=== PATIENT | female | born 1985 | race Caucasian/White ===

== ENCOUNTER 2019-02-13 09:17 | Emergency (ER) | payer MEDICAID ==
[2019-02-13] MEDS: DIPHENHYDRAMINE 50 MG INJ IV (10:14)
[2019-02-13] MEDS: LEVETIRACETAM 1000 MG (PMX) 100 ML IVPB (10:14)
[2019-02-13] MEDS: SOD CHLORIDE 0.9% 500 ML IV (10:14)
[2019-02-13] MEDS: METOCLOPRAMIDE 10 MG INJ IV (10:14)
== END 2019-02-13 14:02 | disposition home or self-care (01) ==
LOC: E/R 09:17
DX: G40.909 Epilepsy, unspecified, not intractable, without status epilepticus (principal); R51 Headache; R40.2142 Coma scale, eyes open, spontaneous, at arrival to emergency department; R40.2362 Coma scale, best motor response, obeys commands, at arrival to emergency department; R40.2252 Coma scale, best verbal response, oriented, at arrival to emergency department; Z91.14 Patient's other noncompliance with medication regimen
CPT/HCPCS: 84703; 96374; 96375; 99284-25